=== PATIENT | male | born 1955 | race Caucasian/White ===

== ENCOUNTER 2016-12-21 10:17 | Emergency (ER) | payer MEDICARE, OTHER ==
[2016-12-21 10:24] VITALS: RESP 18; TEMP 97.6
[2016-12-21] MEDS ORDERED: SODIUM CHLORIDE 0.9% 1000 ML SOL IV SCH (11:00)
[2016-12-21 11:10] LABS: BASOPHILS % (AUTO) 1 % (0-3); EOSINOPHILS % (AUTO) 1 % (0-9); HEMATOCRIT 45 % (39-53); MEAN CORPUSCULAR HGB CONC 35.3 gm/dl (32.0-36.0); MEAN CORPUSCULAR VOLUME 87 fL (80-100); MONOCYTES % (AUTO) 8.3 % (0-12); NEUTROPHILS % (AUTO) 66.7 % (37-80)
[2016-12-21 11:30] LABS: ALBUMIN 3.9 gm/dl (3.4-5.0); CALCIUM 8.5 mg/dl (8.5-10.1); POTASSIUM 3.8 mMol/L (3.5-5.1)
[2016-12-21 11:30] LABS: APPEARANCE,URINE Clear; BILIRUBIN,URINE NEGATIVE (NEGATIVE); COLOR,URINE Yellow; GLUCOSE, URINE (UA) NEGATIVE (NEGATIVE); KETONES,URINE NEGATIVE (NEGATIVE); LEUKOCYTE ESTERASE ,URINE NEGATIVE (NEGATIVE); NITRATE,URINE NEGATIVE (NEGATIVE); OCCULT BLOOD,URINE NEGATIVE (NEG-TRACE); UROBILINOGEN,URINE 0.2 (0.2-1.0 EU)
[2016-12-21 11:58] LABS: RBC,URINE 0-2 (0-3AV/HPF); WBC,URINE 0-3 (0-5AV/HPF)
[2016-12-21 13:30] VITALS: BP 154/87; PULSE 88; O2SAT 98
== END 2016-12-21 13:28 | disposition home or self-care (01) | DRG 392 ==
LOC: ED 10:17
DX: K21.9 Gastro-esophageal reflux disease without esophagitis (principal)
CPT/HCPCS: 36415; 74177; 80053; 81001; 82150; 85025; 96365; 99283; 99284; Q9967

== ENCOUNTER 2017-02-10 19:02 | Emergency (ER) | payer MEDICARE, OTHER ==
[2017-02-10 19:12] VITALS: O2SAT 98
[2017-02-10 19:17] VITALS: BP 170/110; PULSE 95; RESP 28; TEMP 98.2
[2017-02-10] MEDS ORDERED: APAP/HYDROCODONE 325/5 TAB PO ONE (19:51)
[2017-02-10] MEDS ORDERED: APAP/HYDROCODONE 325/5 TAB ONE (19:52)
== END 2017-02-10 20:00 | disposition home or self-care (01) | DRG 156 ==
LOC: ED 19:02
DX: H60.501 Unspecified acute noninfective otitis externa, right ear (principal)
CPT/HCPCS: 99282

== ENCOUNTER 2017-03-08 00:50 | Emergency (ER) | payer MEDICARE, OTHER ==
[2017-03-08] MEDS ORDERED: AZITHROMYCIN 250 MG TAB PO ONE (01:01)
[2017-03-08] MEDS ORDERED: APAP/HYDROCODONE 325/5 TAB PO ONE (01:01)
[2017-03-08] MEDS ORDERED: PREDNISONE 20 MG TAB PO ONE (01:01)
[2017-03-08] MEDS ORDERED: AZITHROMYCIN 250 MG TAB ONE (01:03)
[2017-03-08] MEDS ORDERED: APAP/HYDROCODONE 325/5 TAB ONE (01:03)
[2017-03-08] MEDS ORDERED: PREDNISONE 20 MG TAB ONE (01:03)
[2017-03-08 01:09] VITALS: BP 174/88; PULSE 77; RESP 20; TEMP 98.2; O2SAT 96
== END 2017-03-08 01:45 | disposition home or self-care (01) | DRG 156 ==
LOC: ED 00:50
DX: H60.91 Unspecified otitis externa, right ear (principal)
CPT/HCPCS: 99282

== ENCOUNTER 2017-03-11 04:20 | Emergency (ER) | payer MEDICARE, OTHER ==
[2017-03-11 04:27] VITALS: BP 147/73; PULSE 82; RESP 20; TEMP 97.1; O2SAT 99
== END 2017-03-11 05:12 | disposition home or self-care (01) | DRG 156 ==
LOC: ED 04:20
DX: H60.91 Unspecified otitis externa, right ear (principal); M79.671 Pain in right foot
CPT/HCPCS: 99282

== ENCOUNTER 2017-03-12 00:43 | Emergency (ER) | payer MEDICARE, OTHER ==
[2017-03-12 00:50] VITALS: BP 175/98; PULSE 70; RESP 20; TEMP 96.8; O2SAT 100
[2017-03-12] MEDS ORDERED: LIDOCAINE HCL 2% (VISCOUS) 20 ML SOL MT ONE (01:16)
[2017-03-12] MEDS ORDERED: LIDOCAINE HCL 2% GEL TOP ONE (01:17)
== END 2017-03-12 01:24 | disposition home or self-care (01) | DRG 156 ==
LOC: ED 00:43
DX: T16.1XXA Foreign body in right ear, initial encounter (principal)
CPT/HCPCS: 99283

== ENCOUNTER 2017-08-02 04:19 | Emergency (ER) | payer MEDICARE, OTHER ==
[2017-08-02 04:28] VITALS: PULSE 72; RESP 16; TEMP 98.7; O2SAT 98
[2017-08-02] MEDS ORDERED: LIDOCAINE HCL 2% (VISCOUS) 20 ML SOL MT ONE (04:36)
[2017-08-02] MEDS ORDERED: ALUMINUM/MAGNESIUM 30 ML SUS PO ONE (04:36)
[2017-08-02] MEDS ORDERED: LIDOCAINE HCL 2% (VISCOUS) 20 ML SOL ONE (04:38)
[2017-08-02] MEDS ORDERED: ALUMINUM/MAGNESIUM 30 ML SUS ONE (04:38)
[2017-08-02] MEDS ORDERED: OMEPRAZOLE 20 MG CAPSULE PO ONE (04:47)
[2017-08-02] MEDS: SODIUM CHLORIDE 0.9% FLUSH 10 ML SOL IV PRN ×3 (05:05→06:00)
[2017-08-02 05:23] LABS: BASOPHILS % (AUTO) 1 % (0-3); EOSINOPHILS % (AUTO) 1 % (0-9); HEMATOCRIT 44 % (39-53); MEAN CORPUSCULAR HGB CONC 34.9 gm/dl (32.0-36.0); MEAN CORPUSCULAR VOLUME 86 fL (80-100); MONOCYTES % (AUTO) 10.4 % (0-12); NEUTROPHILS % (AUTO) 61.8 % (37-80)
[2017-08-02] MEDS ORDERED: NITROGLYCERIN 0.4 MG TAB SL ONE (05:29)
[2017-08-02] MEDS: NITROGLYCERIN 0.4 MG TAB SL PRN ×2 (05:30→05:43)
[2017-08-02] MEDS ORDERED: SODIUM CHLORIDE 0.9% 1000ML 1,000 ML IV ONE (05:40)
[2017-08-02 05:42] LABS: ALBUMIN 3.9 gm/dl (3.4-5.0); CALCIUM 8.7 mg/dl (8.5-10.1); POTASSIUM 3.6 mMol/L (3.5-5.1)
[2017-08-02] MEDS ORDERED: CLOPIDOGREL 75 MG TAB PO ONE ×2 (05:59→06:03)
[2017-08-02] MEDS ORDERED: MORPHINE SULFATE 10 MG/ML SOL IV PRN (06:03)
[2017-08-02] MEDS ORDERED: NITROGLYCERIN 0.4 MG TAB SL PRN (06:03)
[2017-08-02] MEDS ORDERED: HEPARIN SODIUM 5000 U/ML SOL IV ONE (06:03)
[2017-08-02] MEDS ORDERED: TENECTEPLASE 50 MG KIT IVP STA (06:03)
[2017-08-02] MEDS ORDERED: ASPIRIN 81 MG CHEWABLE CTB PO STA (06:03)
[2017-08-02] MEDS ORDERED: SODIUM CHLORIDE 0.9% FLUSH 10 ML SOL IV PRN (06:03)
[2017-08-02] MEDS ORDERED: HEPARIN SODIUM 5000 U/ML SOL ONE ×2 (06:06→06:09)
[2017-08-02] MEDS ORDERED: CLOPIDOGREL 75 MG TAB ONE (06:10)
[2017-08-02] MEDS ORDERED: HEPARIN PREMIX 25,000 U/250 ML SOL IV SCH (06:15)
[2017-08-02 06:48] VITALS: BP 114/68
== END 2017-08-02 06:34 | disposition short-term general hospital (02) | DRG 282 ==
LOC: ED 04:19
DX: I21.3 ST elevation (STEMI) myocardial infarction of unspecified site (principal)
CPT/HCPCS: 36415; 71010; 80053; 84484; 85025; 85610; 93005; 96365; 96374; 99285; 99291; J1644

== ENCOUNTER 2018-06-17 17:19 | Emergency (ER) | payer MEDICARE, OTHER ==
[2018-06-17] MEDS ORDERED: ASPIRIN 81 MG CHEWABLE CTB ONE (17:26)
[2018-06-17] MEDS ORDERED: SODIUM CHLORIDE 0.9% FLUSH 10 ML SOL IV PRN (17:49)
[2018-06-17] MEDS ORDERED: ASPIRIN 81 MG CHEWABLE CTB PO STA (17:49)
[2018-06-17] MEDS ORDERED: NITROGLYCERIN 0.4 MG TAB SL PRN (17:49)
[2018-06-17 17:56] LABS: BASOPHILS % (AUTO) 1 % (0-3); EOSINOPHILS % (AUTO) 2 % (0-9); HEMATOCRIT 44 % (39-53); HEMOGLOBIN 14.7 gm/dl (13.5-17.7); LYMPHOCYTES % (AUTO) 22.2 % (10-50); MEAN CORPUSCULAR HEMOGLOBIN 29.5 pg (27.0-32.0); MEAN CORPUSCULAR HGB CONC 33.7 gm/dl (32.0-36.0); MEAN CORPUSCULAR VOLUME 88 fL (80-100); MONOCYTES % (AUTO) 9.4 % (0-12); NEUTROPHILS % (AUTO) 65.5 % (37-80)
[2018-06-17 18:12] LABS: BLOOD UREA NITROGEN 20 mg/dl (7-18); CARBON DIOXIDE 27.9 mEq/L (21-32); CHLORIDE 103 mMol/L (98-107); CREATINE KINASE 81 U/L (39-308); CREATININE 1.09 mg/dl (0.80-1.30); GLUCOSE 126 mg/dl (74-106); SODIUM 136 mMol/L (136-145); TROP I < 0.017 ng/ml (0.000-0.056)
[2018-06-17 18:19] VITALS: TEMP 96.6
[2018-06-17 19:07] VITALS: O2SAT 96
[2018-06-17 19:11] VITALS: BP 138/90; PULSE 67; RESP 17
== END 2018-06-17 18:29 | disposition home or self-care (01) | DRG 311 ==
LOC: ED 17:19
DX: I20.0 Unstable angina (principal); M79.622 Pain in left upper arm
CPT/HCPCS: 36415; 71045; 80048; 82550; 83880; 84484; 85025; 93005; 99284

== ENCOUNTER 2019-02-23 11:13 | Emergency (ER) | payer MEDICARE, OTHER ==
[2019-02-23] MEDS ORDERED: MORPHINE SULFATE 10 MG/ML SOL IV PRN (11:17)
[2019-02-23] MEDS ORDERED: SODIUM CHLORIDE 0.9% FLUSH 10 ML SOL IV PRN (11:17)
[2019-02-23] MEDS ORDERED: NITROGLYCERIN 0.4 MG TAB SL PRN (11:17)
[2019-02-23 11:26] VITALS: TEMP 97.8
[2019-02-23 11:27] LABS: BASOPHILS % (AUTO) 1 % (0-3); EOSINOPHILS % (AUTO) 1 % (0-9); HEMATOCRIT 46 % (39-53); HEMOGLOBIN 15.5 gm/dl (13.5-17.7); LYMPHOCYTES % (AUTO) 16.4 % (10-50); MEAN CORPUSCULAR HEMOGLOBIN 30.2 pg (27.0-32.0); MEAN CORPUSCULAR HGB CONC 34.1 gm/dl (32.0-36.0); MEAN CORPUSCULAR VOLUME 89 fL (80-100); MONOCYTES % (AUTO) 7.2 % (0-12); NEUTROPHILS % (AUTO) 74.8 % (37-80)
[2019-02-23 11:36] LABS: INR 1.05 (0.86-1.12)
[2019-02-23 11:42] LABS: ALBUMIN 3.6 gm/dl (3.4-5.0); ALKALINE PHOSPHATASE 89 IU/L (46-116); ALT 35 IU/L (14-63); AST 23 IU/L (15-37); BILIRUBIN,TOTAL 0.5 mg/dl (0.2-1.0); BLOOD UREA NITROGEN 24 mg/dl (7-18); CALCIUM 8.6 mg/dl (8.5-10.1); CARBON DIOXIDE 26.5 mEq/L (21-32); CHLORIDE 101 mMol/L (98-107); CREATININE 1.03 mg/dl (0.80-1.30); GLUCOSE 170 mg/dl (74-106); POTASSIUM 4.1 mMol/L (3.5-5.1); SODIUM 137 mMol/L (136-145); TOTAL PROTEIN 7.5 gm/dl (6.4-8.2); TROP I < 0.017 ng/ml (0.000-0.056)
[2019-02-23] MEDS ORDERED: LIDOCAINE HCL 2% (VISCOUS) 15 ML SOL ONE (11:46)
[2019-02-23] MEDS ORDERED: ALUMINUM/MAGNESIUM 30 ML SUS ONE (11:46)
[2019-02-23] MEDS: LIDOCAINE HCL 2% (VISCOUS) 15 ML SOL MT ONE (11:50)
[2019-02-23] MEDS: ALUMINUM/MAGNESIUM 30 ML SUS PO ONE (11:50)
[2019-02-23 13:42] VITALS: BP 130/81; PULSE 80; RESP 19; O2SAT 99
== END 2019-02-23 11:58 | disposition home or self-care (01) | DRG 392 ==
LOC: ED 11:13
DX: K21.9 Gastro-esophageal reflux disease without esophagitis (principal); R07.9 Chest pain, unspecified
CPT/HCPCS: 71045; 80053; 84484; 85025; 85610; 85730; 93005; 99283; 99284; A9270-GY